=== PATIENT | female | born 1930 | race Two or more races ===

== ENCOUNTER 2017-06-18 13:58 | Emergency (ER) | payer OTHER ==
[~2017-06-18] VITALS: Ht 157.5 cm; Wt 55.4 kg
[2017-06-18] MEDS ORDERED: SODIUM CHLORIDE 0.9% 1,000ML IVBOLUS ONE (15:00)
[2017-06-18] MEDS ORDERED: ONDANSETRON 2MG/ML, 2ML ONE (15:00)
[2017-06-18] MEDS ORDERED: MORPHINE SULFATE 4 MG/ML, 1ML IVPush PRN (15:00)
[2017-06-18] MEDS ORDERED: ONDANSETRON 2MG/ML, 2ML IVPush ONE (15:00)
[2017-06-18] MEDS ORDERED: SODIUM CHLORIDE FLUSH 10ML SYR IVF ONE (15:00)
[2017-06-18] MEDS ORDERED: MORPHINE SULFATE 4 MG/ML, 1ML ONE (15:00)
[2017-06-18 15:03] LABS: HEMATOCRIT 38.7 % (34.6-47.8); HEMOGLOBIN 12.8 g/dL (11.7-16.4); WHITE BLOOD COUNT 5.9 x10^3/uL (3.4-10)
[2017-06-18 15:14] LABS: BLOOD UREA NITROGEN 16 mg/dL (7-18)
[2017-06-18 16:06] LABS: PATH.CAST-FLAG NOT PRESENT; SPERM-FLAG NOT PRESENT; SRC-FLAG NOT PRESENT; XTAL-FLAG NOT PRESENT; YLC-FLAG NOT PRESENT
[2017-06-18 17:17] VITALS: BP 174/64
== END 2017-06-18 18:29 | disposition home or self-care (01) ==
LOC: ED 15:17
DX: N12 Tubulo-interstitial nephritis, not specified as acute or chronic (principal); N30.90 Cystitis, unspecified without hematuria; N39.0 Urinary tract infection, site not specified
CPT/HCPCS: 36415; 80048; 81001; 82040; 85025; 93005; 96361; 96374; 96375; 99285; J2405; J7030

== ENCOUNTER 2017-12-14 10:42 | Emergency (ER) | payer OTHER ==
[~2017-12-14] VITALS: Ht 157.5 cm; Wt 50.3 kg
[2017-12-14] MEDS ORDERED: SODIUM CHLORIDE FLUSH 10ML SYR IVF ONE (12:00)
[2017-12-14] MEDS ORDERED: NITROGLYCERIN SINGLE TAB 0.4 MG SL PRN (12:00)
[2017-12-14] MEDS ORDERED: ASPIRIN 81 MG TABLET CHEW PO ONE (12:00)
[2017-12-14] MEDS ORDERED: MECLIZINE CHEWABLE 25 MG TAB PO ONE (12:00)
[2017-12-14] MEDS ORDERED: NITROGLYCERIN SINGLE TAB 0.4 MG SL ONE (12:06)
[2017-12-14] MEDS ORDERED: ASPIRIN 81 MG TABLET CHEW ONE (12:07)
[2017-12-14] MEDS ORDERED: MECLIZINE CHEWABLE 25 MG TAB ONE (12:07)
[2017-12-14 12:08] LABS: BASOPHILS # (AUTO) 0.01 x10^3/uL (0-0.1); BASOPHILS % (AUTO) 0 % (0-1); EOSINOPHILS # (AUTO) 0.08 x10^3/uL (0-0.4); EOSINOPHILS % (AUTO) 1 % (1-7); LYMPHOCYTES # (AUTO) 2.66 x10^3/uL (1-3.4); LYMPHOCYTES % (AUTO) 29 % (22-44); MD NO; MEAN CORPUSCULAR HEMOGLOBIN 30.1 pg (27.0-34.8); MEAN CORPUSCULAR HGB CONC 33.5 g/dL (32.4-35.8); MEAN CORPUSCULAR VOLUME 89.9 fL (80-100); MEAN PLATELET VOLUME 7.1 fL (7.4-10.4); MONOCYTES # (AUTO) 0.62 x10^3/uL (0.2-0.8); MONOCYTES % (AUTO) 7 % (2-9); NEUTROPHILS # (AUTO) 5.97 x10^3/uL (1.8-6.8); NEUTROPHILS % (AUTO) 64 % (42-75); PLATELET COUNT 216 x10^3/uL (130-400); RED BLOOD COUNT 4.84 x10^6/uL (3.82-5.3)
[2017-12-14 12:16] LABS: INTERNATIONAL NORMALIZED RATIO 0.99 (0.93-1.1); PROTHROMBIN TIME 10.2 Seconds (9.6-11.5)
[2017-12-14 12:19] LABS: ALANINE AMINOTRANSFERASE 25 U/L (12-78); ALBUMIN 3.8 g/dL (3.4-5.0); ANION GAP 7 mmol/L (5-15); CALCIUM 8.3 mg/dL (8.5-10.1); CHLORIDE 106 mmol/L (98-107); CREATININE 1.05 mg/dL (0.55-1.02)
[2017-12-14] MEDS ORDERED: CETI10TA24 PO (12:28)
[2017-12-14] MEDS ORDERED: PRAM1.5T5 PO (12:28)
[2017-12-14] MEDS ORDERED: CITA40TA5 PO (12:28)
[2017-12-14] MEDS ORDERED: LISI-170 PO (12:28)
[2017-12-14] MEDS ORDERED: OMEP-110 PO (12:28)
[2017-12-14] MEDS ORDERED: LEVO25TA4 PO (12:28)
[2017-12-14] MEDS ORDERED: GABA400C PO (12:28)
[2017-12-14] MEDS ORDERED: OXYC-302 PO (12:28)
[2017-12-14 12:29] LABS: ALKALINE PHOSPHATASE 63 U/L (45-117); BILIRUBIN,TOTAL 0.7 mg/dL (0.2-1.0); T4 (THYROXINE) 11.1 mcg/dL (4.8-13.9); THYROID STIMULATING HORMONE 0.996 mIU/L (0.358-3.740)
[2017-12-14 14:16] VITALS: BP 160/76
== END 2017-12-14 14:23 | disposition home or self-care (01) ==
LOC: ED 13:30
DX: R07.89 Other chest pain (principal); R42 Dizziness and giddiness
CPT/HCPCS: 36415; 70450; 71046; 80053; 83880; 84436; 84443; 84484; 85025; 85610; 85730; 87086; 93005; 99285

== ENCOUNTER 2018-05-08 14:14 | Observation (INO) | payer OTHER ==
[~2018-05-08] VITALS: Ht 157.5 cm; Wt 54.5 kg
[~2018-05-08 14:14] MED LIST: CETI10TA24 PO; CITA40TA5 PO; GABA400C PO; LEVO25TA4 PO; LISI-170 PO; OMEP-110 PO; OXYC-302 PO; PRAM1.5T5 PO
[2018-05-08] MEDS ORDERED: ASPIRIN 81 MG TABLET CHEW ONE (14:54)
[2018-05-08] MEDS ORDERED: ASPIRIN 81 MG TABLET CHEW PO ONE (15:00)
[2018-05-08 15:17] LABS: BASOPHILS % (AUTO) 0 % (0-1); EOSINOPHILS # (AUTO) 0.03 x10^3/uL (0-0.4); EOSINOPHILS % (AUTO) 1 % (1-7); LYMPHOCYTES # (AUTO) 2.02 x10^3/uL (1-3.4); LYMPHOCYTES % (AUTO) 35 % (22-44); MD NO; MEAN CORPUSCULAR HEMOGLOBIN 30.6 pg (27.0-34.8); MEAN CORPUSCULAR HGB CONC 34.1 g/dL (32.4-35.8); MEAN CORPUSCULAR VOLUME 89.6 fL (80-100); MEAN PLATELET VOLUME 6.7 fL (7.4-10.4); MONOCYTES # (AUTO) 0.39 x10^3/uL (0.2-0.8); MONOCYTES % (AUTO) 7 % (2-9); NEUTROPHILS # (AUTO) 3.36 x10^3/uL (1.8-6.8); NEUTROPHILS % (AUTO) 58 % (42-75); PLATELET COUNT 186 x10^3/uL (130-400); RED BLOOD COUNT 4.55 x10^6/uL (3.82-5.3); RED CELL DISTRIBUTION WIDTH 13.3 % (9.6-15.2)
[2018-05-08 15:26] LABS: ALANINE AMINOTRANSFERASE 27 U/L (12-78); ALBUMIN 3.7 g/dL (3.4-5.0); ANION GAP 6 mmol/L (5-15); CALCIUM 8.7 mg/dL (8.5-10.1); CHLORIDE 108 mmol/L (98-107); CREATININE 1.06 mg/dL (0.55-1.02)
[2018-05-08 15:31] LABS: ALKALINE PHOSPHATASE 63 U/L (45-117); BILIRUBIN,TOTAL 0.4 mg/dL (0.2-1.0); TOTAL PROTEIN 6.7 g/dL (6.4-8.2); TROPONIN I < 0.015 ng/mL (0.000-0.045)
[2018-05-08] MEDS ORDERED: HYDR-3240 PO (15:58)
[2018-05-08] MEDS ORDERED: NITROGLYCERIN 0.4 MG/SPRAY SL PRN (16:30)
[2018-05-08] MEDS ORDERED: hydrALAzine 20 MG/ML, 1ML IVPush PRN (16:30)
[2018-05-08] MEDS ORDERED: NITROGLYCERIN 0.4 MG BOTTLE (25 TABS) SL PRN (16:30)
[2018-05-08] MEDS: PRAMIPEXOLE 0.5MG TABLET PO SCH ×2 (17:00→20:12)
[2018-05-08] MEDS: PANTOPROZOLE 40MG TABLET PO SCH (17:38)
[2018-05-08 17:39] VITALS: BP 152/71
[2018-05-08 18:28] VITALS: BP 122/65
[2018-05-08] MEDS ORDERED: MAALOX/HYOSCYAMINE/LIDOCAINE 45 ML BTL PO ONE (18:38)
[2018-05-08] MEDS: HYDROcodone/APAP 5/325 TABLET PO PRN (18:54)
[2018-05-08] MEDS ORDERED: ASPI-691 PO (19:45)
[2018-05-08] MEDS ORDERED: PRAMIPEXOLE 0.125MG TABLET ONE (20:05)
[2018-05-08 20:21] VITALS: BP 148/69
[2018-05-08] MEDS ORDERED: MELATONIN 5 MG TABLET PO PRN (23:00)
[2018-05-08 23:24] LABS: TROPONIN I < 0.015 ng/mL (0.000-0.045)
[2018-05-09 02:42] VITALS: BP 148/71
[2018-05-09] MEDS: HYDROcodone/APAP 5/325 TABLET PO PRN (05:06)
[2018-05-09 05:12] LABS: ANION GAP 6 mmol/L (5-15); CALCIUM 8.4 mg/dL (8.5-10.1); CHLORIDE 110 mmol/L (98-107); CREATININE 1.02 mg/dL (0.55-1.02)
[2018-05-09] MEDS ORDERED: LEVOTHYROXINE 25 MCG TABLET PO SCH (06:00)
[2018-05-09 07:17] VITALS: BP 157/67
[2018-05-09] MEDS ORDERED: LISINOPRIL 20 MG TABLET PO SCH (09:00)
[2018-05-09] MEDS ORDERED: CITALOPRAM 20 MG TABLET PO SCH (09:00)
[2018-05-09] MEDS ORDERED: GABAPENTIN 400 MG CAPSULE PO SCH (09:00)
[2018-05-09] MEDS: PANTOPROZOLE 40MG TABLET PO SCH (09:42)
[2018-05-09] MEDS: PRAMIPEXOLE 0.5MG TABLET PO SCH (09:44)
[2018-05-09 09:51] VITALS: BP 133/75
[2018-05-09] MEDS ORDERED: REGADENOSON 0.4 MG/5 ML SYRINGE ONE (11:02)
== END 2018-05-09 16:30 | disposition home or self-care (01) ==
LOC: ED 16:31 → 5SO 16:46 → INTOOBSV 16:46 → DCLOUNGE 05-09 15:28
PROVIDERS: ADMIT Family Medicine; ATTEND Family Medicine
DX: R07.89 Other chest pain (principal); K21.9 Gastro-esophageal reflux disease without esophagitis; I12.9 Hypertensive chronic kidney disease with stage 1 through stage 4 chronic kidney disease, or unspecified chronic kidney disease; N18.9 Chronic kidney disease, unspecified; M81.0 Age-related osteoporosis without current pathological fracture; I87.2 Venous insufficiency (chronic) (peripheral); M79.7 Fibromyalgia; E03.9 Hypothyroidism, unspecified; G25.81 Restless legs syndrome; Z79.82 Long term (current) use of aspirin
CPT/HCPCS: 36415; 71045; 78452; 80048; 80053; 83690; 84484; 85025; 93005; 93017; 99285; A9502; C9898; G0378; J2785

== ENCOUNTER → 2018-06-22 | Outpatient (CLI) | payer OTHER ==
[~2018-06-22] MED LIST changes: +ASPI-691 PO; +HYDR-3240 PO
== END | disposition home or self-care (01) ==
LOC: RAD 12:44
PROVIDERS: ATTEND Internal Medicine Gastroenterology
DX: R07.89 Other chest pain (principal); R13.19 Other dysphagia; R11.0 Nausea
CPT/HCPCS: 74220

== ENCOUNTER → 2019-03-30 | Outpatient (CLI) | payer MEDICARE | END | disposition home or self-care (01) | LOC: RAD 07:44 | PROVIDERS: ATTEND Internal Medicine Gastroenterology | DX: R63.0 Anorexia (principal); R68.81 Early satiety; R11.0 Nausea; R10.11 Right upper quadrant pain | CPT/HCPCS: 74241 ==

== ENCOUNTER 2019-06-26 16:22 | Emergency (ER) | payer MEDICARE ==
[~2019-06-26] VITALS: Ht 157.5 cm; Wt 45.0 kg
[2019-06-26 17:00] VITALS: BP 155/84
--- NOTE | 2019-06-26 17:01 | NUR ---
TASK RN: FIRST CONTACT WITH PT. PT C/O INCREASING FALLS, EPIGASTRIC PAIN, DIZZINESS AND DISORIENTATION. + NAUSEA, DECREASED APPETITE. PT'S AOX4 HERE. ALL MONITORS IN PLACE. CALL LIGHT WITHIN REACH. 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 PT'S DAUGHTER AT BEDSIDE.
--- NOTE | 2019-06-26 17:10 | NUR ---
XRAY IN THE ROOM NOW. BEDSIDE COMMODE IN THE ROOM . PT AWARE OF UA.
[2019-06-26 17:11] LABS: BASOPHILS # (AUTO) 0.01 x10^3/uL (0-0.1); BASOPHILS % (AUTO) 0 % (0-1); EOSINOPHILS # (AUTO) 0.12 x10^3/uL (0-0.4); EOSINOPHILS % (AUTO) 2 % (1-7); LYMPHOCYTES % (AUTO) 40 % (22-44); MD NO; MEAN CORPUSCULAR HEMOGLOBIN 30.6 pg (27.0-34.8); MEAN CORPUSCULAR HGB CONC 33.2 g/dL (32.4-35.8); MEAN CORPUSCULAR VOLUME 92.2 fL (80-100); MEAN PLATELET VOLUME 6.7 fL (7.4-10.4); MONOCYTES # (AUTO) 0.27 x10^3/uL (0.2-0.8); MONOCYTES % (AUTO) 5 % (2-9); NEUTROPHILS # (AUTO) 3.05 x10^3/uL (1.8-6.8); NEUTROPHILS % (AUTO) 53 % (42-75); PLATELET COUNT 179 x10^3/uL (130-400); RED BLOOD COUNT 4.55 x10^6/uL (3.82-5.3); RED CELL DISTRIBUTION WIDTH 14.6 % (9.6-15.2)
[2019-06-26 17:20] LABS: ANION GAP 7 mmol/L (5-15); CALCIUM 8.6 mg/dL (8.5-10.1); CHLORIDE 107 mmol/L (98-107)
--- NOTE | 2019-06-26 17:42 | NUR ---
DR. DHALIWAL TO BS FOR ASSESSMENT. VSS. AWAITING ORDERS.
[2019-08-06] MEDS ORDERED: CITA10TA4 PO (17:06)
[2019-08-06] MEDS ORDERED: MULT-658 PO (17:06)
[2019-08-06] MEDS ORDERED: DOXY25TA45 PO (17:06)
[2019-08-06] MEDS ORDERED: GABA300C10 PO (17:06)
[2019-08-06] MEDS ORDERED: CYAN500T18 PO (17:06)
== END 2019-06-26 18:56 | disposition home or self-care (01) ==
LOC: ED 18:11
DX: K25.7 Chronic gastric ulcer without hemorrhage or perforation (principal); K21.9 Gastro-esophageal reflux disease without esophagitis
CPT/HCPCS: 36415; 71045; 80048; 82040; 85025; 93005; 99284